=== PATIENT | male | born 1990 | race Two or more races ===

== ENCOUNTER 2018-06-12 12:18 | Emergency (ER) | payer SELFPAY ==
[~2018-06-12] VITALS: Ht 167.6 cm; Wt 74.8 kg
[2018-06-12 12:39] VITALS: BP 126/77
== END 2018-06-12 21:58 | disposition left against medical advice (07) ==
LOC: ER 12:18
DX: S61.402D Unspecified open wound of left hand, subsequent encounter (principal); X58.XXXD Exposure to other specified factors, subsequent encounter; Z53.29 Procedure and treatment not carried out because of patient's decision for other reasons